=== PATIENT | male | born 1950 | race Caucasian/White ===

== ENCOUNTER → 2018-07-21 07:07 | Outpatient (CLI) | payer MEDICARE, SELFPAY ==
--- NOTE | 2018-07-21 | ASPIG_PTH ---
PATIENT: ROXY YOON LOC: CT U#:[id number] AGE/SX: 75/M ROOM: RE07/21/[address]: Indra Anthony MD : 1950 BED: DIS: SPEC #: [id number] RECD: 07/21/18 12:10 STATUS: YANELIS JUDY #: [id number] AMY: 07/21/18 00:[address]: Indra Anthony DEPT: CYTOLOGY RECD BY: Michael Hanna ENTERED: 07/21/18 12:11 SP TYPE: ASP OUT OTHR DR: No Primary Care Phys Tissues: A - Neck, NOS B - Mandible, NOS Procedures: FNA Specimen Adequacy Pap Stain (control) Special Stain Group II Surgery Specimen Level IV Diff Quik Stain (control) Cell Block Cytology Other HEADER OPERATION: Fine needle aspiration left posterior neck and left submandibular masses PRE-OP DIAGNOSIS: Left posterior neck and left submandibular masses TISSUE SUBMITTED: A - FNA left posterior neck mass, B - FNA left submandibular mass DIAGNOSIS CYTOLOGY A. Left posterior neck mass, FNA (smears and cell block): Atypical lymphocytes noted, consistent with lymphoproliferative disorder. Flow cytometry studies from [facility] shows CD10 positive clonal B-cell population. The differential diagnosis includes follicular lymphoma, diffuse large B-cell lymphoma, and Burkitt leukemia/lymphoma. The complete report is viewable in patient's EMR. B. Left submandibular mass, FNA (smears and cell block): Degenerated and necrotic cellular material, insufficient for further evaluation. SJ:norman 07/22/18 COMMENT The specimen is evaluated at the time of FNA by Dr. Cruz. Immediate Evaluation: A. Atypical lymphocytes consistent with lymphoproliferative disorder. B. Degenerative epithelial and inflammatory cells present. A. Incisional or excisional biopsy of the lesion is suggested for definite classification of the lymphoma.. B. Incisional or excisional biopsy of the lesion is suggested for definite diagnosis. Case has been reviewed in consultation with Dr. Cruz who concurs with the above diagnosis. IDC:AM CYTOLOGY STUDY Slides are reviewed. A - The smears show mixture of atypical small and lymphocytes. The cell block shows rare lymphocytes CYTOLOGY GROSS A - Received is 0.25 ml of reddish fluid labeled with the patient's name, and designated left posterior neck mass. Four imprints and three paps are made from the submitted fluid and the rest is added to CytoLyt for cell block preparation. Submitted for cytology study. B - Received is 0.2 ml of reddish fluid labeled with the patient's name, and designated left submandibular mass. Five imprints and two paps are made from the submitted fluid and the rest is added to CytoLyt for cell block preparation. Submitted for cytology study. / AM:norman 07/21/18 TC:0 CPT: 59919 x2, 85083 x2, 97482 x2, 66302 x2
--- NOTE | 2018-07-21 07:16 | CT_ITS ---
STUDY: CT SOFT TISSUE NECK WITH CONTRAST REASON FOR EXAM: Male, 68 years old. Cervical lymphadenopathy. RADIATION DOSAGE (If Supplied By Facility): CTDIvol = ( 23.66 ) mGy, DLP = ( 750.55 ) mGycm TECHNIQUE: The patient was scanned in a multi-detector CT scanner. High resolution transaxial imaging was performed following intravenous administration of 100 ml of Isovue 300 contrast material. Sagittal and coronal images were reconstructed. Individualized dose optimization techniques were used for this CT. COMPARISON: None. FINDINGS: Atherosclerotic plaque formation of the aortic arch. Normal bilateral parotid glands. Normal bilateral department store manager spaces. Normal bilateral parapharyngeal spaces. Normal bilateral carotid spaces. Normal bilateral sublingual and submandibular glands and spaces. Normal visualized nasopharynx. Normal retropharyngeal space. Normal perivertebral space. Normal visualized bilateral faucial tonsils. The visualized tongue, tongue base and oropharynx are normal. There is evidence of a marked degree of lymph node enlargement in the left side of the neck both along the anterior and posterior triangle of the neck. This extends into the left supraclavicular region. There is also evidence of multiple enlarged lymph nodes in the right side of the neck although these are not as large. There is no demonstrated solid or cystic mass lesion. There is no abnormal contrast enhancement. Normal epiglottis, bilateral vallecula and hypopharynx. The pre-epiglottic and paraglottic adipose spaces are normal. Normal visualized bilateral piriform sinuses, aryepiglottic folds, vocal cords, and arytenoid-cricoid articulations. Normal subglottic trachea. Normal bilateral lobes of the thyroid gland. Normal visualized pulmonary apices. Normal visualized paranasal sinuses. There is multilevel degenerative changes of the cervical spine. CT/Soft Tissue Neck WITH Contrast IMPRESSION: Bilateral cervical lymphadenopathy worse on the left side. The left cervical adenopathy extends into the left supraclavicular region. Electronically Signed: Reginald Willis MD at 8:47 EDT Tel [phone], Service support ,
[2018-07-21 07:50] LABS: CREATININE FINGERSTICK 0.7 mg/dL (0.70-1.30); EGFR FINGERSTICK > 60.0000 mL/min (>60)
== END ==
PROVIDERS: Visit Provider Otolaryngology Otolaryngology/Facial Plastic Surgery
DX: R59.0 Localized enlarged lymph nodes (principal)
CPT/HCPCS: 70491; 88161; 88172; 88305; 88313; Q9967

== ENCOUNTER → 2018-07-29 16:51 | Outpatient (CLI) | payer MEDICARE, SELFPAY ==
--- NOTE | 2018-07-29 16:53 | EKG12_ITS ---
Test Reason : PREOP Blood Pressure : / mmHG Vent. Rate : 052 BPM Atrial Rate : 052 BPM P-R Int : 176 ms QRS Dur : 142 ms QT Int : 480 ms P-R-T Axes : 015 087 068 degrees QTc Int : 446 ms Sinus bradycardia Right bundle branch block Abnormal ECG Confirmed by CHRISTINE CALLAHAN, PETEY ([id number]), image editor PILAR DESAI ([id number]) on 08/02/2018 11:02:55 AM Referred By: Griffin Mcghee Confirmed By:PETEY KING MD
[2018-07-29 17:13] LABS: Hematocrit 39.7 % (40-54); Mean Corp Hgb Conc 32.7 g/gl (32-36); Mean Corpuscular Hgb 29.1 pg (27.0-32.0); Mean Corpuscular Volume 88.8 fL (80-94); Mean Platelet Vol. 10.2 fl (6.2-12.0); Platelet Count 193 K/mm3 (150-450); RBC Distribution Width CV 12.5 % (11.6-14.6); RBC Distribution Width SD 40.1 fl (35.1-43.9); Red Blood Count 4.47 M/mm3 (4.6-6.2); White Blood Count 6.6 K/mm3 (4.4-11.0)
[2018-07-29 17:18] LABS: Scan Indicated on CBC? Y/N NO
[2018-07-29 17:33] LABS: Anion Gap 6 (5-15); BUN 18 mg/dL (7-18); BUN/Creat Ratio 19.5 RATIO (10-20); Calcium,Total 9.2 mg/dL (8.5-10.1); Chloride 102 mmol/L (98-107); Creatinine, Serum 0.92 mg/dL (0.70-1.30); EST Glomerular Filtration Rate 87 mL/min (>60); Est Glom Filt Rate - Afr Amer 105 mL/min (>60); Glucose 101 mg/dL (74-106); Potassium 3.5 mmol/L (3.5-5.1); Sodium Level 140 mmol/L (136-145)
== END ==
PROVIDERS: Referring Provider Otolaryngology; Visit Provider Otolaryngology
DX: R59.0 Localized enlarged lymph nodes (principal)
CPT/HCPCS: 36415; 80048; 85027; 93005

== ENCOUNTER → 2018-08-03 14:18 | Outpatient (CLI) | payer MEDICARE, SELFPAY ==
--- NOTE | 2018-08-03 | IMM_PTH ---
PATIENT: ROXY YOON LOC: [facility] U#:[id number] AGE/SX: 75/M ROOM: RE08/03/[address]: Dr. Barak Mcghee MD : 1950 BED: DIS: SPEC #: [id number] RECD: 08/05/18 10:16 STATUS: YANELIS REGiovanna #: [id number] AMY: 08/03/18 00:[address]: Barak Mcghee DEPT: IMMUNOHISTOCHEMISTRY RECD BY: Savita Tomlinson ENTERED: 08/05/18 10:19 SP TYPE: IMMUNO OTHR DR: Out of [facility] Doctor Tissues: Neck, NOS Procedures: BCL-2 (add) BCL-6 (add) CD10 (add) CD20 (add) CD23 (add) CD43 (add) CD45 (add) CD5 (add) CD79A (add) CYCLIN (add) KI-67 (add) MUM1 (add) CD3 (initial) PHYSICIAN & [address] [address] SPECIMEN INFORMATION: Tissue Source: Left neck mass Clinical Info: Left neck mass Specimen Number: [id number] CPT code: 54006, 60658 x12 METHODOLOGY: Deparaffinized sections of prefer/formalin-fixed tissue or PAP/DQ stained slides are incubated with monoclonal/polyclonal antibodies/oligonucleotide probes. Localization is made via biotin free immunoperoxidase method. Appropriate controls are performed and reacted as expected. Results on target cell population are indicated in the following table: RESULTS: ANTIBODY / CLONE RESULT CD3 (PS1) negative CD5 (SP10) negative CD20 (L26) positive CD43 (L60) negative CD45 (RP2/18) positive CD79a (11E3) positive CD10 (56C6) positive CD23 (1B12) negative (positive focally in dendritic pattern) BCL-2 (bcl-2/100/D5) positive BCL-6 (QW856D/A8) positive Cyclin D1/BCL-1 (SP4) negative MUM1 (MRQ-43) negative Ki-67 (30-9) positive, low to moderate These tests were developed and their performance characteristics determined by [facility]. They may not have been cleared or approved by the U.S. Food and Drug Administration. The FDA has determined that such clearance or approval is not necessary. 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 This case has been reviewed in consultation with Dr. Cruz who concurs with the above diagnosis. SJ:norman 08/06/18
--- NOTE | 2018-08-03 14:18 | LYM_PTH ---
PATIENT: ROXY YOON LOC: [facility] U#:[id number] AGE/SX: 75/M ROOM: RE08/03/[address]: Dr. Barak Mcghee MD : 1950 BED: DIS: SPEC #: [id number] RECD: 08/03/18 15:33 STATUS: YANELIS JUDY #: [id number] MAY: 08/03/18 14:[address]: Barak Mcghee DEPT: SURGICAL PATHOLOGY RECD BY: Randy Ashford ENTERED: 08/04/18 08:46 SP TYPE: LYM NODES OTHR DR: Out of [facility] Doctor [facility] Tissues: Lymph node of neck, NOS Procedures: Special Stain Group II Surgery Specimen Level IV Diff Quik Stain (control) H & E (control) HEADER OPERATION: Excisional biopsy, left neck mass PRE-OP DIAGNOSIS: Left neck mass TISSUE SUBMITTED: Left neck mass, rule out lymphoma MICROSCOPIC DIAGNOSIS Left neck mass, excisional biopsy: Non-Hodgkin B-cell follicular lymphoma, 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 Flow cytometry study from [facility] shows CD10 positive clonal B-cell population. The complete report is viewable in patient's EMR. SJ:norman 08/09/18 COMMENT Immunohistochemistry ([id number]) supports the above diagnosis. Please make reference to previous specimen ([id number]) left posterior neck mass, FNA with diagnosis of atypical lymphocytes with flow cytometry study from [facility] showing CD10 positive clonal B-cell population and left submandibular mass, FNA with diagnosis of degenerated and necrotic cellular material. Case has been reviewed in consultation with Dr. Cruz who concurs with the above diagnosis. IDC:AM MICROSCOPIC DESCRIPTION Slides are reviewed. The specimen shows lymph node tissue with effacement of normal lymph node architecture with focal area showing multiple follicles and these follicles show mixture of small and large atypical lymphocytes. Atypical lymphocytes comprise <6 per high power field. Focal areas of diffuse pattern and fibrosis are also noted. Areas of necrosis are not seen. GROSS DESCRIPTION Received fresh for lymphoma protocol is one container labeled with the patient's name and designated excisional biopsy left neck mass. The specimen consists of two pieces of lima soft tissue measuring in aggregate 1 x 1 x 0.5 cm. A section is submitted for flow cytometry study. Four touch imprints are prepared (two stained with Diff-Quik and two H & E stained). The entire specimen is submitted in one cassette. / SJ:rg 08/04/18 TC:0 CPT: 22904, 69295
== END ==
PROVIDERS: Referring Provider Otolaryngology; Visit Provider Otolaryngology
DX: R22.1 Localized swelling, mass and lump, neck (principal)
CPT/HCPCS: 88305; 88307; 88313; 88341; 88342

== ENCOUNTER → 2019-07-14 11:31 | Outpatient (CLI) | payer MEDICARE, SELFPAY ==
--- NOTE | 2019-07-14 11:51 | EKG12_ITS ---
Test Reason : PRE-OP Blood Pressure : / mmHG Vent. Rate : 069 BPM Atrial Rate : 069 BPM P-R Int : 220 ms QRS Dur : 136 ms QT Int : 436 ms P-R-T Axes : 065 -48 095 degrees QTc Int : 467 ms Sinus rhythm with 1st degree A-V block Right bundle branch block Left anterior fascicular block Bifascicular block Left ventricular hypertrophy with QRS widening and repolarization abnormality Abnormal ECG Confirmed by FABBY CALLAHAN, SHIELA ([id number]), purchasing expeditor PILAR DESAI ([id number]) on 07/15/2019 11:20:56 AM Referred By: Oswald Mcghee Confirmed By:SIVAKUMAR SEQUEIRA MD
[2019-07-14 12:18] LABS: Hematocrit 41.3 % (40-54); Hemoglobin 13.6 g/dL (13.0-16.5); Mean Corp Hgb Conc 32.9 g/dL (32-36); Mean Corpuscular Hgb 29.7 pg (27.0-32.0); Mean Corpuscular Volume 90.2 fL (80-94); Mean Platelet Vol. 10.2 fl (6.2-12.0); Platelet Count 187 K/mm3 (150-450); RBC Distribution Width CV 12.4 % (11.6-14.6); RBC Distribution Width SD 40.9 fl (35.1-43.9); Red Blood Count 4.58 M/mm3 (4.6-6.2); White Blood Count 6.2 K/mm3 (4.4-11.0)
[2019-07-14 12:45] LABS: Anion Gap 1 (5-15); BUN 13 mg/dL (7-18); BUN/Creat Ratio 16.8 RATIO (10-20); Calcium,Total 9.1 mg/dL (8.5-10.1); Chloride 104 mmol/L (98-107); Creatinine, Serum 0.77 mg/dL (0.70-1.30); EST Glomerular Filtration Rate 106 mL/min (>60); Est Glom Filt Rate - Afr Amer 128 mL/min (>60); Glucose 118 mg/dL (74-106); Potassium 3.6 mmol/L (3.5-5.1); Sodium Level 139 mmol/L (136-145)
== END ==
PROVIDERS: Referring Provider Otolaryngology; Visit Provider Otolaryngology
DX: Z01.818 Encounter for other preprocedural examination (principal); I45.10 Unspecified right bundle-branch block
CPT/HCPCS: 36415; 80048; 85027; 93005

== ENCOUNTER → 2019-07-19 15:33 | Outpatient (CLI) | payer MEDICARE, SELFPAY ==
--- NOTE | 2019-07-19 | MASS_PTH ---
PATIENT: ROXY YOON LOC: [facility] U#:[id number] AGE/SX: 75/M ROOM: RE07/19/[address]: Dr. Barak Mcghee MD : 1950 BED: DIS: SPEC #: [id number] RECD: 07/19/19 15:18 STATUS: YANELIS HARRINGTONGiovanna #: [id number] AMY: 07/19/19 00:[address]: Barak Mcghee DEPT: SURGICAL PATHOLOGY RECD BY: Randy Ashford ENTERED: 07/20/19 09:44 SP TYPE: Mass OTHR DR: Out of Town Doctor [facility] Tissues: Neck, NOS Procedures: Special Stain Group II Surgery Specimen Level IV Imprint (control) HEADER OPERATION: Excision left neck mass with biopsy PRE-OP DIAGNOSIS: Left neck mass TISSUE SUBMITTED: Left neck mass, rule out lymphoma MICROSCOPIC DIAGNOSIS Left neck mass, biopsy: A minute piece of lymphoid tissue, consistent with involvement by non-Hodgkin B-cell lymphoma, favor follicle center cell origin. See comment. SJ:rg 07/25/19 COMMENT The specimen is evaluated at the time of touch imprints by Dr. Mosqueda. Immediate Evaluation = Lymphocytes are not seen. Case has been reviewed in consultation with Dr. Cruz who concurs with the above diagnosis. IDC:AM Immunohistochemistry ([id number]) supports the above diagnosis. The specimen consists of only a minute piece of lymphoid tissue measuring 0.2 cm in greatest dimension. The atypical cells predominantly consist of large lymphocytes. Further classification is not possible due to small size of the submitted specimen. The lymphocytes show focal degenerative changes. Please make reference to previous specimen ([id number]) left neck mass, excisional biopsy with diagnosis of non-Hodgkin B-cell follicular lymphoma, 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 Case has been reviewed in consultation with Dr. Cruz who concurs with the above diagnosis. IDC:AM MICROSCOPIC DESCRIPTION Slides are reviewed. GROSS DESCRIPTION Received fresh for lymphoma protocol labeled with the patient's name is a specimen designated left neck mass. The specimen consists of an ovoid piece of lima soft tissue measuring 0.5 x 0.3 x 0.2 cm. The specimen is bisected and four touch imprints are prepared, two stained with Diff-Quik and two stained with H & E stain. The entire specimen is submitted in one cassette. / SJ:norman 07/20/19 TC:0 CPT: 25749, 25331
--- NOTE | 2019-07-19 | MASS_PTH ---
PATIENT: ROXY YOON LOC: [facility] U#:[id number] AGE/SX: 75/M ROOM: RE07/19/[address]: Dr. Barak Mcghee MD : 1950 BED: DIS: SPEC #: [id number] RECD: 07/19/19 15:18 STATUS: YANELIS HARRINGTONGiovanna #: [id number] AMY: 07/19/19 00:[address]: Barak Mcghee DEPT: SURGICAL PATHOLOGY RECD BY: Randy Ashford ENTERED: 07/20/19 09:44 SP TYPE: Mass OTHR DR: Out of Town Doctor [facility] Tissues: Neck, NOS Procedures: Special Stain Group II Surgery Specimen Level IV Imprint (control) HEADER OPERATION: Excision left neck mass with biopsy PRE-OP DIAGNOSIS: Left neck mass TISSUE SUBMITTED: Left neck mass, rule out lymphoma MICROSCOPIC DIAGNOSIS Left neck mass, biopsy: A minute piece of lymphoid tissue, consistent with involvement by non-Hodgkin lymphoma, favor follicular center cell origin. See comment. SJ:rg 07/25/19 COMMENT The specimen is evaluated at the time of touch imprints by Dr. Mosqueda. Immediate Evaluation = Lymphocytes are not seen. Case has been reviewed in consultation with Dr. Cruz who concurs with the above diagnosis. IDC:AM Immunohistochemistry ([id number]) supports the above diagnosis. The specimen consists of only a minute piece of lymphoid tissue measuring 0.2 cm in greatest dimension. The atypical cells predominantly consist of large lymphocytes. Further classification is not possible due to small size of the submitted specimen. The lymphocytes show focal degenerative changes. Please make reference to previous specimen ([id number]) left neck mass, excisional biopsy with diagnosis of non-Hodgkin B-cell follicular lymphoma, 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 Case has been reviewed in consultation with Dr. Cruz who concurs with the above diagnosis. IDC:AM MICROSCOPIC DESCRIPTION Slides are reviewed. GROSS DESCRIPTION Received fresh for lymphoma protocol labeled with the patient's name is a specimen designated left neck mass. The specimen consists of an ovoid piece of lima soft tissue measuring 0.5 x 0.3 x 0.2 cm. The specimen is bisected and four touch imprints are prepared, two stained with Diff-Quik and two stained with H & E stain. The entire specimen is submitted in one cassette. / SJ:norman 07/20/19 TC:0 CPT: 02936, 54141
--- NOTE | 2019-07-19 | IMM_PTH ---
PATIENT: ROXY YOON LOC: [facility] U#:[id number] AGE/SX: 75/M ROOM: RE07/19/[address]: Dr. Barak Mcghee MD : 1950 BED: DIS: SPEC #: [id number] RECD: 07/21/19 11:47 STATUS: YANELIS REGiovanna #: [id number] AMY: 07/19/19 00:[address]: Barak Mcghee DEPT: IMMUNOHISTOCHEMISTRY RECD BY: Savita Tomlinson ENTERED: 07/21/19 11:48 SP TYPE: IMMUNO OTHR DR: Out of Town Doctor Tissues: Neck, NOS Procedures: BCL-2 (add) BCL-6 (add) CD10 (add) CD20 (add) CD23 (add) CD3 (add) CD43 (add) CD5 (add) CD79A (add) CK8 (add) CYCLIN (add) KI-67 (add) MUM1 (add) C-MYC (add) Pankeratin (add) CD45 (initial) PHYSICIAN & [address] [address] SPECIMEN INFORMATION: Tissue Source: Left neck mass Clinical Info: Left neck mass Specimen Number: [id number] CPT code: 36471, 33351 x15 METHODOLOGY: Deparaffinized sections of prefer/formalin-fixed tissue or PAP/DQ stained slides are incubated with monoclonal/polyclonal antibodies/oligonucleotide probes. Localization is made via biotin free immunoperoxidase method. Appropriate controls are performed and reacted as expected. Results on target cell population are indicated in the following table: RESULTS: ANTIBODY / CLONE RESULT CD45 (RP2/18) positive CD3 (PS1) negative CD20 (L26) positive CD79a (11E3) positive CD5 (SP10) negative CK8 ([id number]) negative AE1-3 (AE1/AE3/PCK26) negative CD23 (1B12) negative CD43 (L60) negative BCL-2 (bcl-2/100/D5) positive BCL-6 (WY718O/A8) positive, weak Ki-67 (30-9) positive, low CD10 (56C6) positive Cyclin D1/BCL-1 (SP4) negative MUM1 (MRQ-43) negative C-MYC (Y69) negative These tests were developed and their performance characteristics determined by [facility]. They may not have been cleared or approved by the U.S. Food and Drug Administration. The FDA has determined that such clearance or approval is not necessary. INTERPRETATION: Left neck mass, excisional biopsy: Consistent with involvement by non-Hodgkin B-cell lymphoma, favor follicle center cell origin. MIRIAM:norman 07/25/19
== END ==
PROVIDERS: Referring Provider Otolaryngology; Visit Provider Otolaryngology
DX: R22.1 Localized swelling, mass and lump, neck (principal)
CPT/HCPCS: 88304; 88305; 88313; 88341; 88342